=== PATIENT | male | born 1985 | race Caucasian/White ===

== ENCOUNTER 2025-01-11 13:58 | Outpatient (OUT) | payer OTHER, SELFPAY ==
--- OUTSIDE RECORDS SUMMARY | 2025-01-11 08:51 | XMS_ITS | Continuity of Care Document ---
Author Organization [facility] Address [address] [place] [address] Phone Care Team Providers Care Associate Technician Name Role Phone Marli Gonsales MD Primary Care Provider Marli Gonsales MD Attending Provider Care Teams Patient Care Team Team Status: Active Member Role/Relationship Status Dates Marli Gonsales MD Primary Care Provider Active Visit Care Team Team Status: Inactive Member Role/Relationship Status Dates Marli Gonsales MD Primary Care Provider Active Start: December 05, 2024 End: December 05, 2024Flavia Uriostegui ProviderActiveStart: December 05, 2024 End: December 05, 2024 Patient Care Team Team Status: Inactive Member Role/Relationship Status Dates Marli Gonsales MD Primary Care Provider Active Start: January 11, 2025 End: January 11, 2025Flavia Uriostegui ProviderActiveStart: January 11, 2025 End: January 11, 2025 Chief Complaint and Reason for Visit Chief Complaint Admit Date Med Check December 05, 2024 8 :52am increased urination January 11, 2025 1:13pm Reason for Visit Admit Date Essential (primary) hypertension December 05, 2024 8:52am Encounter for wellness examination Octob er 2024 8:52am Essential (primary) hypertension Novembe r 2024 1:13pm Urinary frequency January 11, 2025 1:13pm Wellness examination January 11, 2025 1:13pm Allergies, Adverse Reactions, Alerts Allergen Type Severity Reaction Last Updated Verified Status No Known Allergies Allergy Unknown January 11, 2025 1:34pmYesActive Social History Smoking Status Unknown if ever smoked Observation Status Observation Response Date of Response Legal Sex Male (finding) [facility] 1985 Family History Relationship Condition Age at Onset Recorded Date/T tanisha father Hypertension Unknown Problems Active Problems Problem Diagnosis/Recorded Date Onset Date Stat us Urinary frequency January 11, 2025 1:46pm Unknown Active Wellness examination January 11, 2025 1:47pm Unknow n Active Essential (primary) hypertension November 03, 2023 7:35am Unknown Active Inactive/Resolved Problems Problem Diagnosis/Recorded Date Onset Date Stat us Lumbar radiculitis November 11, 2023 9:40am Unknown Resolved Medications Medication Status Dose Units Route Directions Qty Days Refills S tart Date Stop Date End Date Reason(s) Instructions Adherence Bisoprolol-Hydrochlorothiazide 5-6.25 mg tablet Discon tinued 0 .ROUTE.HLJFPPT497Mwvhc 2023 3:40pmJune 2023 11:49amTAKE 1 TABLET BY MOUTH EVERY DAY FOR 90 DAYSBisoprolol-Hydrochlorothiazide 5-6.25 mg tablet Discontinued0.ROUTE.KPCPOHR579Dllj 2023 11:49amOctober 2023 7:35am TAKE 1 TABLET BY MOUTH EVERY DAY FOR 90 DAYSBisoprolol-Hydrochlorothiazide 5- 6.25 mg tabletDiscontinued0.ROUTE.TUJIPWH059Sxmhcll 2023 7:35amDeceer 2023 3:44pmTAKE 1 TABLET BY MOUTH EVERY DAY FOR 90 DAYSBisoprolol- Hydrochlorothiazide 5-6.25 mg tabletDiscontinued0.ROUTE.PCYBTSE604Mnkndxzq 30th, 2024 3:44pmJuly 2024 12:13pmTAKE 1 TABLET BY MOUTH EVERY DAY FOR 90 DAYS Bisoprolol-Hydrochlorothiazide 5-6.25 mg tabletDiscontinued0.ROUTE.KUVIKCO816 August 23, 2024 12:13pmOctober 2024 7:59amTAKE 1 TABLET BY MOUTH EVERY DAY FOR 90 DAYSBisoprolol-Hydrochlorothiazide 5-6.25 mg tabletDiscontinued0.ROUTE .AAGBOZZ546Iaxlnms 3rd, 2025 7:59amOctober 2024 8:19amTAKE 1 TABLET BY MOUTH EVERY DAY FOR 90 DAYSBisoprolol-Hydrochlorothiazide 5-6.25 mg tablet Hvwjqqnlgfxu5AXSVWAkdetTjnes 2023 11:00pmMar 2023 3:40pm Ciprofloxacin Hcl 500 mg mlivkdGuhewk062LVVYBjzlh fbfao756Toclmveb 19th, 2025 12:00amComplies with drug therapyTizanidine 4 mg kfndceSwmyfaqpcbvc1SYSFEnwck 8 hours as needed for muscle hivxpejrgu056Akzwchjfs 2023 11:00pmOctbreckinridge [facility] 2024 7:55amBisoprolol-Hydrochlorothiazide 5-6.25 mg tabletActive0.ROUTE.COMPLEX 902Octbreckinridge memorial hospital 2024 8:19amTAKE 1 TABLET BY MOUTH EVERY DAY FOR 90 DAYSComplies with drug therapy Vital Signs Vital Reading Result Reference Range Collection Date/Time Height 72 [in_i] December 05, 2024 7:45cnTcpjwj35.48 [facility] 7:54amHeart Rate48 /gif80-287Lulducc 2024 7:58amBP Dvskseni534 mm[Hg]100-140[facility] 2024 7:58amBP Geolptgmb09 mm[Hg]60-100[facility] 2024 7:58amBMI (Body Mass Index)21.9 kg/y1Rfpbbmt 2024 7:37mqRpbzfh99 [in_i]January 11, 2025 1:81sdBurkkf15.93 kgC[facility] 2024 1:34pmHeart Rate51 /eyd25-875Zhoymuxp 2024 1:40pmBP Chdejsmc500 mm[Hg]100-140[facility] 2024 1:40pmBP Cbqnqkipo77 mm[Hg]60-100[facility] 2024 1:40pmBMI (Body Mass Index)22.1 kg/t7Jlokfoqm 2024 1:34pm Advance Directives Advance Directive Response Recorded Date/ Time Advance Directives No May 19 024 2:42pm Insurance Providers Guarantor Daniel Staley Address [address] [place] [id number] Info.Home Phone: Payer Group Member ID Coverage Type Subscriber Relationship to Subscriber Effective Date Expiration Date [employer] [id number] A Perry Id: [id number] [address] [place] [address] Home Phone: Self Encounters Encounter Location(s) Arrival/Admit Date Discharge/Departure Date Discharge/Departure Disposition Provider(s) Departed Physician/ Provider Office Visit -[facility] December 05, 2024 8:52am December 05, 2024 9:19am Discharged to home care or self care (routine discharge) Marli Gonsales MD Departed Physician/ Provider Office Visit -[facility] January 11, 2025 1:13pm January 11, 2025 1:51pm Discharged to home care or self care (routine discharge) Marli Gonsales MD Recent Diagnosis Onset Date Admit Date Essential (primary) hypertension Unknown December 05, 2024 8:52am Encounter for wellness examination Unknown December 05, 2024 8:52am Essential (primary) hypertension Unknown January 11, 2025 1:13pm Urinary frequency Unknown January 11, 2025 1:13pm Wellness examination Unknown January 112024 1:13pm Assessments Diagnosis Onset Date Resolution Status Admit Date Essential (primary) hypertension acuteOctober 2024 8:52amEncounter for wellness examinationnoneactive December 05, 2024 8:52amEssential (primary) hypertensionacuteNovember 2024 1:13pmUrinary frequencyacuteNov2024 1:13pmWellness examination acuteJanuary 11, 2025 1:13pm Plan of Treatment Author Marli Gonsales [facility] 2024 8:19amPersonalized health advice was given to the beneficiary to health education of preventative counseling services or programs aimed at reducing identified risk factors and improving self-management or community-based lifestyle interventions to reduce health risks and promote self-management and wellness, including physical activity and nutrition. stable continue present dose of bisoprolol - hctz. Future Tests Future scheduled test information is unavailable Pending Tests Test Name Ordered Date Scheduled Date Comprehensive Metabolic Panel January 11 1:46pm Future Visits Future appointment information is unavailable Future Procedures Procedure Name Ordered Date Scheduled Date Complete Blood Count Auto Diff January 11 1:46pm Urine [facility]Community [facility]2024 1:46pmUrinalysisNov2024 1:46pm Future Medications Future medication information is unavailable Patient Instructions Patient instructions are unavailable
--- OUTSIDE RECORDS SUMMARY | 2025-01-11 14:05 | XMS_ITS | Clinical Summary ---
Author Organization [facility] Address [id number] [place] [address] Care Team Providers Care Linseed Cake Trimmer Name Role Phone Marli Gonsales MD Primary Care Provider [phone] Allergies No known active allergies Medications MedicationSigDispense QuantityRefillsLast FilledStart DateEnd DateStatus bisoprolol-hydroCHLOROthiazide (ZIAC) 5-6.25 mg per tablet Indications:hypertensionTake 1 tablet by mouth in the morning. Indications: high blood pressure.05/25/2022ctive polyethylene glycol (GLYCOLAX) 17 gram packet Take 17 g by mouth in the morning. 30 packet 12/03/2023ctive Additional Information Patient not taking.Reported on 02/29/2024 sennosides-docusate sodium (SENOKOT-S) 8.6-50 mg Take 1 tablet by mouth in the morning and 1 tablet before bedtime. 30 tablet 12/02/2023ctive Additional Information Patient not taking.Reported on 02/29/2024 tiZANidine (ZANAFLEX) 4 mg tablet Take 1 tablet (4 mg total) by mouth every 6 (six) hours as needed for muscle spasms. 60 tablet 12/02/2023ctive naloxone (NARCAN) 4 mg/actuation spray,non-aerosol nasal spray Administer 1 spray (4 mg total) into alternating nostrils as needed for opioid reversal. 2 each 12/02/2023ctive Additional Information Patient not taking.Reported on 02/29/2024 Active Problems ProblemNoted DateDiagnosed DateHerniated lumbar intervertebral disc10/06/2023 Lumbar beqcxfmrznege88/13/2024ars defect of lumbar spine10/06/2023 Intervertebral disc disorder with radiculopathy of lumbar lqdlqa5307/28/2023 Unspecified mononeuropathy of bilateral lower limbs02/25/2023isorder of sacrum 01/14/2023Spondylolisthesis at L5-S1 levelLumbar spondylosis 07/22/2022 Immunizations No known immunizations Family History Medical HistoryRelationNameCommentsBack ProblemsBrotherBack ProblemsFatherNeck ProblemsFatherNo Known ProblemsMotherBack ProblemsPaternal GrandmotherNeck ProblemsPaternal GrandmotherAnesthesia problemsNeg HxRelationNameStatusComments BrotherFatherMotherPaternal Grandmother Social History Tobacco UseTypesPacks/DayYears UsedDateSmoking Tobacco: NeverSmokeless Tobacco: Never Tobacco Cessation:Counseling Given: Not Answered Alcohol UseStandard Drinks/WeekCommentsYes5 (1 standard drink = 0.6 oz pure alcohol)2 a night bud [facility] UtilitiesAnswerDate RecordedIn the past 12 months has the [employer], oil, or water [employer] threatened to shut off services in your home?No11/30/2023UDIT-CAnswerDate RecordedQ1: How often do you have a drink containing alcohol?4 or more times a week11/30/2023Q2: How many drinks containing alcohol do you have on a typical day when you are drinking?1 or 2 11/30/2023Q3: How often do you have six or more drinks on one occasion?Never 11/30/2023RAPARE - TransportationAnswerDate RecordedIn the past 12 months, has lack of transportation kept you from medical appointments or from getting medications?No11/30/2023In the past 12 months, has lack of transportation kept you from meetings, work, or from getting things needed for daily living?No 11/30/2023Housing InstabilityAnswerDate RecordedAre you worried or concerned that in the next two months you may not have stable housing that you own, rent or stay in as a part of a household?No11/30/2023hildcareAnswerDate Recorded QjlvrqggoQtakqen61/12/2019EmploymentAnswerDate RecordedEmploymentUnknown 08/04/2018Hunger ScreeningAnswerDate RecordedWithin the past 12 months we worried whether our food would run out before we got money to buy more.Never True02/29/2024Within the past 12 months the food we bought just didn't last and we didn't have money to get more.Never True02/29/2024Sex and Gender Information ValueDate RecordedSex Assigned at BirthNot on fileLegal CzdPvir3209/28/2014 11:38 AM EDTGender IdentityNot on fileSexual OrientationNot on file Last Filed Vital Signs Vital SignReadingTime TakenCommentsBlood Ydcexhpi197/8110 4:33 AM EDT Fpoex1083 4:33 AM WMIRrtfovyicif35.9 ??C (98.5 ??F)12/02/2023 4:33 AM EDTRespiratory Tanm6062 4:33 AM EDTOxygen Elrjbgftup56%12/02/2023 4:33 AM EDTInhaled Oxygen Concentration--Eajsnw92.1 kg (170 lb)02/29/2024 12:15 PM HOODssmck290.9 cm (6')02/29/2024 12:15 PM ESTBody Mass Index23.0602/29/2024 12:15 PM EST Plan of Treatment Health MaintenanceDue DateLast DoneCommentsDepression Xgobzpsyd13/20/2000 DTaP,Tdap and Td Vaccines (1 - Tdap)09/11/2006Influenza Ugloftk7610/24/2024dult BMI Ymfzlbunq28Tobacco Zsurawdqa33 Goals GoalPatient Goal TypeAssociated ProblemsRecent ProgressPatient-Stated?Author home Zonia Cardenas RN Note: Evaluation of progress towards goal: patient anticipates discharge home with self care and spouse support Medical Devices ImplantedTypeAreaManufacturerDevice IdentifierShelf Expiration DateModel / Serial / LotCap Lck Creo Spnl Thrd Ns Rpl Special [id number] - [id number] Implanted:Qty: 6 on 11/30/2023 [facility]N/A: Spine [id number] / / Graft Bn Cllr Demineralize Fbr Xl David Vivigen Frl Rpl [id number] - [id number] - [id number] Implanted:Qty: 1 on 11/30/2023 [facility]Other ImplantN/A: Spine RclhmyPeqdnok78//[id number] / [id number] / Pierce Spnl Creo 60mm 5.5mm Ti Crv Ns - [id number] Implanted:Qty: 1 on 11/30/2023 by [facility]/A: Spine [id number] / / Pierce Spnl Creo 65mm 5.5mm Ti Crv Ns - [id number] Implanted:Qty: 1 on 11/30/2023 by [facility]/A: Spine [id number] / / Screw Bn 50mm 6.5mm Pa Pras Spne Creo Ns Lf - [id number] Implanted:Qty: 4 [facility]: Spine [id number] / / Screw Bn 45mm 6.5mm Pa Pras Spne Creo Ns Lf - [id number] Implanted:Qty: 2 on 11/30/2023 [facility]: Spine [id number] / / [place] [id number] Advance Directives * Full Code (Latest Code Status on File) Date ActivatedDate MhwrfoqhsiqJawkfngp45/7/2024 5:58 PM10 2:11 PM Care Teams Team MemberRelationshipSpecialtyStart DateEnd Date Marli Gonsales MD [address] [place] [address] PCP - GeneralFamily Medicine06/29/23
--- OUTSIDE RECORDS SUMMARY | 2025-01-11 14:05 | XMS_ITS | Clinical Summary ---
Author Organization [facility] Address [address] [place] [address] Care Team Providers Care Phone Triage Specialist Name Role Phone Lesley White MD Primary Care Provider [phone] Social History Tobacco UseTypesPacks/DayYears UsedDateSmoking Tobacco: Never AssessedSex and Gender InformationValueDate RecordedSex Assigned at BirthNot on fileLegal Sex Male05/07/2022 11:51 PM EDTGender IdentityNot on fileSexual OrientationNot on file Last Filed Vital Signs Vital SignReadingTime TakenCommentsBlood Pressure--Pulse--Temperature-- Respiratory Rate--Oxygen Saturation--Inhaled Oxygen Concentration--Olydnk74.5 kg (173 lb)04/15/2022 12:00 PM SHITmjyef309.4 cm (6' 1 )04/15/2022 12:00 PM ESTBody Mass Index22.8204/15/2022 12:00 PM EST Plan [place] [id number] Care Teams Team MemberRelationshipSpecialtyStart DateEnd Date Lesley White MD [address] [place] [phone] [facility] - [facility]22
[2025-01-11 14:28] LABS: Hematocrit 42.2 % (42.0-54.0); Hemoglobin 14.5 g/dL (14.0-18.0); Immature Granulocytes Abs Auto 0.01 10^3/uL (0.00-0.03); Immature Granulocytes Pct Auto 0.1 % (0.0-0.5); Lymphocytes Absolute Auto 2.0 10^3/uL (1.2-3.8); Mean Corpuscular HGB Conc 34.4 g/dL (29.9-35.2); Mean Corpuscular Hemoglobin 29.9 pg (25.9-34.0); Mean Corpuscular Volume 87.0 fL (80.0-94.0); Platelet Count 237 10^3/uL (150-450); Red Blood Count 4.85 10^6/uL (4.70-6.10); White Blood Count 7.6 10^3/uL (4.0-11.0)
[2025-01-11 14:37] LABS: Alanine Aminotransferase 35 U/L (16-63); Albumin Globulin Ratio 1.2; Albumin Level 4.1 g/dL (3.4-5.0); Alkaline Phosphatase 85 U/L (46-116); Anion Gap 11.9; Aspartate Amino Transferase 26 U/L (15-37); Blood Urea Nitrogen 15.0 mg/dL (7.0-18.0); Calcium 9.2 mg/dL (8.5-10.1); Carbon Dioxide 32.7 mmol/L (21.0-32.0); Chloride 101 mmol/L (98-107); Estimated GFR (African America >60 (>=60 mL/min/1.73m^2); Estimated GFR (Non-African Ame >60 (>=60 mL/min/1.73m^2); Globulin 3.3 g/dL; Glucose 113 mg/dL (74-106); Potassium 3.6 mmol/L (3.5-5.1); Sodium 142 mmol/L (136-145); Total Protein 7.4 g/dL (6.4-8.2)
[2025-01-11 14:38] LABS: Glucose Urine UA NEGATIVE (NEGATIVE)
[2025-01-11 14:55] LABS: Cast Seen? NONE SEEN #/LPF (NONE SEEN); Crystals Seen? None Seen #/HPF (None Seen)
== END 2025-01-11 13:59 | disposition home or self-care (01) ==
LOC: LAB 14:02
PROVIDERS: PCP Family Medicine; Visit Provider Family Medicine
DX: Z00.00 Encounter for general adult medical examination without abnormal findings (principal); R35.0 Frequency of micturition; I10 Essential (primary) hypertension
CPT/HCPCS: 36415; 80053; 81001; 85025